=== PATIENT | female | born 1970 | race African-American/Black ===

== ENCOUNTER 2017-04-05 12:44 | Emergency (ER) | payer MEDICAID, OTHER ==
[~2017-04-05] VITALS: Ht 162.6 cm; Wt 77.1 kg
[~2017-04-05 12:44] MED LIST: FOLIC ACID1 MG ORAL; MORPHINE IR15 MG ORAL; ZOFRAN4 M1 ORAL
[2017-04-05 12:50] VITALS: BP 106/70
--- NOTE | 2017-04-05 13:12 | Emergency Room Report ---
History of Present Illness General Chief Complaint: Chest Pain Source: EMS Present Illness HPI 47-year-old female no significant past medical history presenting with 2 days of cough. Plus cough productive with clear sputum. Subjective fever and chills. Mild short of breath. No recent travel, no sick contacts. No history of DVT PE. No prolonged immobilization, surgeries, malignancy. Allergies: Coded Allergies: CODEINE (Unverified Allergy, Unknown, 07/26/14) MILK (Unverified Allergy, Unknown, 04/05/17) Uncoded Allergies: FISH (Allergy, Unknown, 04/05/17) Patient History Past Medical History: see triage record Past Surgical History: none Pertinent Family History: none Last Menstrual Period: 03/09/17 Reviewed Nursing Documentation: PMH: Agreed, PSxH: Agreed Nursing Documentation-PMH Past Medical History: No History, Except For History Of Psychiatric Problem: Yes - Schizophrenia, Depression Review of Systems All Other Systems: negative except mentioned in HPI Physical Exam Vital Signs Date Time Temp Pulse Resp B/P (MAP) Pulse Ox O2 Delivery O2 Flow Rate FiO2 04/05/17 12:38 98.4 92 15 126/67 97 Room Air Sp02 EP Interpretation: reviewed, normal General Appearance: normal inspection, well appearing, no apparent distress, alert, GCS 15, non-toxic Head: normocephalic, atraumatic Eyes: bilateral eye normal inspection, bilateral eye PERRL, bilateral eye EOMI ENT: normal ENT inspection, normal pharynx, normal voice, moist mucus membranes Neck: normal inspection, full range of motion, supple Respiratory: normal inspection, lungs clear, normal breath sounds, no respiratory distress, no retraction, no wheezing, speaking full sentences, chest symmetrical Cardiovascular #1: normal inspection, regular rate, rhythm, no edema, normal capillary refill Cardiovascular #2: 2+ radial (R), 2+ radial (L) Gastrointestinal: normal inspection, non tender, soft, non-distended, no guarding Musculoskeletal: normal inspection, back normal, normal range of motion, non- tender Neurologic: normal inspection, alert, oriented x3, responsive, motor strength/ tone normal, sensory intact, normal gait, speech normal Psychiatric: normal inspection, judgement/insight normal, memory normal Skin: normal inspection, normal color, no rash, warm/dry, well hydrated, normal turgor Medical Decision Making Diagnostic Impression: Primary Impression: Viral upper respiratory illness ER Course 47-year-old female with 2-3 days of cough DDX: Viral URI versus pneumonia Plan: EKG chest x-ray ER course: Patient has remained stable during ED stay. Vital signs normal Disposition: Patient is to be discharged to home. Patient is instructed to follow up with their primary care doctor within 5 days. Strict return precautions discussed with patient such as fever, chills, worsening/severe pain, nausea, vomiting, which may indicate severe illness. Patient verbalizes understanding and agrees with plan. Please note that this Emergency Department Report was dictated using [employer] roller technology software, occasionally this can lead to erroneous entry secondary to interpretation by the dictation equipment Last Vital Signs Date Time Temp Pulse Resp B/P (MAP) Pulse Ox O2 Delivery O2 Flow Rate FiO2 04/05/17 12:46 92 15 Room Air 04/05/17 12:38 98.4 126/67 97 Disposition: HOME, SELF-CARE Condition: Improved Robbin Pastor M.D. Apr 05, 2017 13:12
[2017-04-05 14:00] VITALS: BP 106/70
--- NOTE | 2017-04-05 17:43 | Diagnostic Imaging Report ---
Indication: COUGH Technique: One view of the chest Comparison: none Findings: Lungs and pleural spaces are clear. Heart size is normal. Impression: No acute process
--- NOTE | 2017-04-07 17:35 | Cardiology Report ---
APPROVED REPORT EKG Measurement Heart [id number] Normal sinus rhythm Low voltage QRS Nonspecific T wave abnormality Abnormal ECG
== END 2017-04-05 13:50 | disposition home or self-care (01) ==
LOC: EDBD 12:44 → EMR 13:06
DX: J06.9 Acute upper respiratory infection, unspecified (principal); R07.9 Chest pain, unspecified; Z88.5 Allergy status to narcotic agent; Z91.011 Allergy to milk products; Z91.013 Allergy to seafood; F20.9 Schizophrenia, unspecified; F32.9 Major depressive disorder, single episode, unspecified
CPT/HCPCS: 71010; 93005; 99283

== ENCOUNTER 2017-09-18 00:27 | Emergency (ER) | payer OTHER ==
[2017-09-18] VITALS (7 sets, daily range): BP systolic 106–120; BP diastolic 69–85
[~2017-09-18] VITALS: Ht 160 cm; Wt 72.6 kg
[2017-09-18] MEDS ORDERED: Haloperidol 5mg/ml Inj IM ONE (00:45)
[2017-09-18] MEDS ORDERED: LORazepam Inj 2mg/ml 1ml IM ONE (00:45)
--- NOTE | 2017-09-18 00:46 | Emergency Room Report ---
History of Present Illness General Chief Complaint: Behavioral Complaint Source: Patient, EMS Present Illness HPI 47-year-old female brought by EMS and law enforcement for psychotic behavior. Law enforcement states that patient called 911. Stated that she wanted to kill herself, wanted to stab other people in the heart. Patient extremely disorganized, paranoid. States that "I need to learn Twitter, no one wants to drive me [place] the [place], I am allergic to needles, I had a body reaction to Januvia" very poor historian. Stating that voices are telling her to do something but will not state with the voices are. Allergies: Coded Allergies: CODEINE (Unverified Allergy, Unknown, 07/26/14) MILK (Unverified Allergy, Unknown, 04/05/17) Uncoded Allergies: FISH (Allergy, Unknown, 04/05/17) Patient History Past Medical History: see triage record Past Surgical History: none Pertinent Family History: none Reviewed Nursing Documentation: PMH: Agreed; PSxH: Agreed Nursing Documentation-PMH History Of Psychiatric Problem: Yes Review of Systems All Other Systems: negative except mentioned in HPI Physical Exam Vital Signs Date Time Temp Pulse Resp B/P (MAP) Pulse Ox O2 Delivery O2 Flow Rate FiO2 09/18/17 00:25 99.5 111 18 106/69 97 Room Air 99.5 Sp02 EP Interpretation: reviewed, normal General Appearance: moderate distress, other - Disorganize female, currently calm however very withdrawn Head: normocephalic, atraumatic Eyes: bilateral eye normal inspection, bilateral eye PERRL, bilateral eye EOMI ENT: normal ENT inspection, normal pharynx, normal voice, moist mucus membranes Neck: normal inspection, full range of motion, supple Respiratory: normal inspection, lungs clear, normal breath sounds, no respiratory distress, no retraction, no wheezing, speaking full sentences, chest symmetrical Cardiovascular #1: normal inspection, regular rate, rhythm, no edema, normal capillary refill Cardiovascular #2: 2+ radial (R), 2+ radial (L) Gastrointestinal: normal inspection, non tender, soft, non-distended, no guarding Musculoskeletal: normal inspection, back normal, normal range of motion, non- tender Neurologic: other - Conversing appropriately, no neurological signs or symptoms Psychiatric: depressed affect, anxious, other - Delusional paranoid auditory hallucinations psychotic Skin: normal inspection, normal color, no rash, warm/dry, well hydrated, normal turgor Medical Decision Making Behavioral: Schizophrenia Reaction to Intervention: Improved Diagnostic Impression: Primary Impression: Behavioral disorder Additional Impressions: Psychosis UTI (urinary tract infection) ER Course 47-year-old female with behavioral disorder on 5150 hold DDX: Psychosis, intoxication Plan: Obtain labs, ua, psychiatric consult ER course: Patient refuses any blood draws, with active suicidal and homicidal thoughts, sedated with Haldol and Ativan +UTI given abx Signed out patient to Dr Patterson -medically clear except for UTI -psychotic with HI thoughts -placement in psych facility Please note that this Emergency Department Report was dictated using [employer] engineering technician technology software, occasionally this can lead to erroneous entry secondary to interpretation by the dictation equipment. Laboratory Tests Test 09/18/17 01:45 White Blood Count 3.9 K/UL (4.8-10.8) L Red Blood Count 3.51 M/UL (4.20-5.40) L Hemoglobin 9.7 G/DL (12.0-16.0) L Hematocrit 29.7 % (37.0-47.0) L Mean Corpuscular Volume 85 FL (80-99) Mean Corpuscular Hemoglobin 27.6 PG (27.0-31.0) Mean Corpuscular Hemoglobin Concent 32.6 G/DL (32.0-36.0) Red Cell Distribution Width 14.2 % (11.6-14.8) Platelet Count 194 K/UL (150-450) Mean Platelet Volume 6.4 FL (6.5-10.1) L Neutrophils (%) (Auto) 75.7 % (45.0-75.0) H Lymphocytes (%) (Auto) 11.8 % (20.0-45.0) L Monocytes (%) (Auto) 7.7 % (1.0-10.0) Eosinophils (%) (Auto) 4.0 % (0.0-3.0) H Basophils (%) (Auto) 0.9 % (0.0-2.0) Urine Color Brown Urine Appearance Slightly cloudy Urine pH 7 (4.5-8.0) Urine Specific [place] 1.010 (1.005-1.035) Urine Protein 1+ (NEGATIVE) H Urine Glucose (UA) Negative (NEGATIVE) Urine Ketones 1+ (NEGATIVE) H Urine Occult Blood 1+ (NEGATIVE) H Urine Nitrite Positive (NEGATIVE) H Urine Bilirubin Negative (NEGATIVE) Urine Urobilinogen 1 MG/DL (0.0-1.0) H Urine Leukocyte Esterase 2+ (NEGATIVE) H Urine RBC 2-4 /HPF (0 - 2) H Urine WBC 2-4 /HPF (0 - 2) Urine Squamous Epithelial Cells Few /LPF (NONE/OCC) Urine Bacteria Many /HPF (NONE) H Urine Mucus Moderate /LPF (NONE/OCC) H Urine HCG, Qualitative Negative (NEGATIVE) Sodium Level 138 MMOL/L (136-145) Potassium Level 3.1 MMOL/L (3.5-5.1) L Chloride Level 103 MMOL/L (98-107) Carbon Dioxide Level 29 MMOL/L (21-32) Anion Gap 6 mmol/L (5-15) Blood Urea Nitrogen 6 mg/dL (7-18) L Creatinine 0.6 MG/DL (0.55-1.30) Estimate Glomerular Filtration Rate > 60 mL/min (>60) Glucose Level 98 MG/DL (74-106) Calcium Level 8.4 MG/DL (8.5-10.1) L Total Bilirubin 0.4 MG/DL (0.2-1.0) Aspartate Amino Transferase (AST) 61 U/L (15-37) H Alanine Aminotransferase (ALT) 47 U/L (12-78) Alkaline Phosphatase 255 U/L (46-116) H Total Protein 7.4 G/DL (6.4-8.2) Albumin 2.5 G/DL (3.4-5.0) L Globulin 4.9 g/dL Albumin/Globulin Ratio 0.5 (1.0-2.7) L Human Chorionic Gonadotropin, Quant 1 mIU/mL (1-6) Salicylates Level 0.4 ug/mL (2.8-20) L Urine Opiates Screen Negative (NEGATIVE) Acetaminophen Level < 2 MCG/ML (10-30) L Urine Barbiturates Screen Negative (NEGATIVE) Phencyclidine (PCP) Screen Negative (NEGATIVE) Urine Amphetamines Screen Negative (NEGATIVE) Urine Benzodiazepines Screen Negative (NEGATIVE) Urine Cocaine Screen Negative (NEGATIVE) Urine Marijuana (THC) Screen Negative (NEGATIVE) Serum Alcohol < 3 mg/dL Last Vital Signs Date Time Temp Pulse Resp B/P (MAP) Pulse Ox O2 Delivery O2 Flow Rate FiO2 09/18/17 00:25 99.5 111 18 106/69 97 Room Air 99.5 Disposition: XFER TO PSYCH HOSP/UNIT Condition: Serious Referrals: [facility],REFERRING (PCP) Robbin Pastor M.D. Sep 18, 2017 00:46
[2017-09-18 02:10] LABS: APPEARANCE,URINE SLIGHTLY CLOUDY; BILIRUBIN, URINE NEGATIVE (NEGATIVE); COLOR,URINE BROWN; GLUCOSE, URINE (UA) NEGATIVE (NEGATIVE); KETONES,URINE 1+ (NEGATIVE); LEUKOCYTE ESTERASE ,URINE 2+ (NEGATIVE); NITRITE,URINE POSITIVE (NEGATIVE); PH,URINE 7 (4.5-8.0); PROTEIN,URINE 1+ (NEGATIVE); UROBILINOGEN,URINE 1 MG/DL (0.0-1.0)
[2017-09-18 02:11] LABS: BASOPHILS % (AUTO) 0.9 % (0.0-2.0); HEMATOCRIT 29.7 % (37.0-47.0); HEMOGLOBIN 9.7 G/DL (12.0-16.0); LYMPHOCYTES % (AUTO) 11.8 % (20.0-45.0); MEAN CORPUSCULAR VOLUME 85 FL (80-99); MONOCYTES % (AUTO) 7.7 % (1.0-10.0); NEUTROPHILS % (AUTO) 75.7 % (45.0-75.0); PLATELET COUNT 194 K/UL (150-450); RED BLOOD COUNT 3.51 M/UL (4.20-5.40); RED CELL DISTRIBUTION WIDTH 14.2 % (11.6-14.8); WHITE BLOOD COUNT 3.9 K/UL (4.8-10.8)
[2017-09-18 02:21] LABS: ANION GAP 6 mmol/L (5-15); BLOOD UREA NITROGEN 6 mg/dL (7-18); CALCIUM 8.4 MG/DL (8.5-10.1); CARBON DIOXIDE 29 MMOL/L (21-32); CHLORIDE 103 MMOL/L (98-107); CREATININE 0.6 MG/DL (0.55-1.30); POTASSIUM 3.1 MMOL/L (3.5-5.1); SODIUM 138 MMOL/L (136-145)
[2017-09-18 02:27] LABS: ALANINE AMINOTRANSFERASE 47 U/L (12-78); ALBUMIN 2.5 G/DL (3.4-5.0); ALBUMIN/GLOBULIN RATIO 0.5 (1.0-2.7); ALKALINE PHOSPHATASE 255 U/L (46-116); ASPARTATE AMINO TRANSFERASE 61 U/L (15-37); BILIRUBIN,TOTAL 0.4 MG/DL (0.2-1.0)
[2017-09-18] MEDS ORDERED: cefTRIAXone 1 GM in NS 55 ML IVPB ONE (02:30)
[2017-09-19] VITALS: BP 108/72
[2017-09-19 04:00] VITALS: BP 103/70
[2017-09-19 06:00] VITALS: BP 102/72
[2017-09-19 09:49] LABS: ANION GAP 5 mmol/L (5-15); BLOOD UREA NITROGEN 8 mg/dL (7-18); CALCIUM 7.8 MG/DL (8.5-10.1); CARBON DIOXIDE 28 MMOL/L (21-32); CHLORIDE 105 MMOL/L (98-107); CREATININE 0.6 MG/DL (0.55-1.30); POTASSIUM 3.4 MMOL/L (3.5-5.1); SODIUM 138 MMOL/L (136-145)
[2017-09-19 09:54] LABS: ALANINE AMINOTRANSFERASE 38 U/L (12-78); ALBUMIN 2.4 G/DL (3.4-5.0); ALBUMIN/GLOBULIN RATIO 0.5 (1.0-2.7); ALKALINE PHOSPHATASE 224 U/L (46-116); ASPARTATE AMINO TRANSFERASE 44 U/L (15-37); BILIRUBIN,TOTAL 0.3 MG/DL (0.2-1.0)
[2017-09-19 10:00] VITALS: BP 118/81
[2017-09-19] MEDS ORDERED: Haloperidol Decanoate 50mg Inj IM ONE (12:00)
[2017-09-19] MEDS ORDERED: fluPHENAZine Decanoate 25mg Inj IM ONE (12:00)
[2017-09-19] MEDS ORDERED: KEFLEX500 MG ORAL (13:13)
[2017-09-19 14:00] VITALS: BP 109/76
[2017-09-19 14:20] VITALS: BP 109/76
--- NOTE | 2017-09-19 23:00 | Consultation ---
DATE OF CONSULTATION: 09/19/2017 CONSULTING PHYSICIAN: Shannon Vazquez M.D. HISTORY OF PRESENT ILLNESS: The patient is a 47-year-old female with a history of multiple medical problems as well as schizophrenia who has been admitted to the hospital for grave disability on a 5150 and having thoughts of . During the evaluation, the patient was bizarre and endorsed somatic delusions for example stating that she has aches and she is contagious. She was refusing care including refusing laboratories as well as refusing medication. During the evaluation, the patient did not endorse any suicidal or homicidal ideation. She was not gravely disabled. She was observed eating and stated that she has been living in an independent living. black ash worker was called who came down the emergency room, made a phone call to the patient's living facility and spoke to her social work job titles, who stated that would assist the patient to see her psychiatrist today at 4 p.m. PAST PSYCHIATRIC HISTORY: She has several psychiatric hospitalization. No suicide attempt in the past. No violent behavior. SUBSTANCE ABUSE HISTORY: She denies any history of illicit drug use. ALLERGIES: No known drug allergies. MENTAL STATUS EXAMINATION: The patient is alert and oriented times self, place, situation, and time. Mood was dysphoric affect was blunted congruent with mood. Thought process was linear. Thought content, no suicidal, homicidal ideation and was positive for delusion. She denied auditory hallucinations; however, she was observed responding to internal stimuli. Insight and judgment was fair. ASSESSMENT: AXIS I Schizophrenia. AXIS II Deferred. AXIS III None. AXIS IV Low. AXIS V Global assessment of functioning is 50. PLAN: The patient will be discharged back to her living facility. At the time of the evaluation, the patient was not imminent danger to self or others and was not gravely disabled. She will be discharged with follow plan with a psychiatrist. She receives . Shannon Vazquez M.D. DR: Cuauhtemoc JOB#: [id number] CC:
== END 2017-09-19 14:20 | disposition home or self-care (01) ==
LOC: EDBD 00:27 → EMR 00:35
DX: F91.9 Conduct disorder, unspecified (principal); Z91.011 Allergy to milk products; Z91.018 Allergy to other foods; Z88.5 Allergy status to narcotic agent
CPT/HCPCS: 36415; 80053; 80307; 80329; 81003; 81025; 82962; 84702; 85025; 87086; 87181; 96372; 96374; 99285; J0696; J1630; J1631; J8499